=== PATIENT | male | born 2000 | race Caucasian/White ===

== ENCOUNTER 2020-10-18 16:18 | Emergency (ER) | payer BC ==
[~2020-10-18] VITALS: Ht 182.9 cm; Wt 90.7 kg
--- NOTE | 2020-10-18 16:33 | NUR ---
ED Nurse Note:pt. is on the phone
[2020-10-18] MEDS ORDERED: Lidocaine 1% MPF 10mg/ml 5ml INJ ONE (17:00)
[2020-10-18] MEDS ORDERED: Ketorolac 30mg Inj IM ONE (17:00)
[2020-10-18] MEDS ORDERED: CEPHALEXIN500 M1 ORAL (17:04)
[2020-10-18] MEDS ORDERED: IBU800 MG PO (17:04)
--- NOTE | 2020-10-18 17:04 | Emergency Room Report ---
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 Patient reports that he relapsed and used IV heroin few days ago and that side. That site does not appear to be warm to touch, patient has range of motion only feels pain upon palpation of the area rating it 3 out of 10. Appears to have a lot of scar tissue around the vein. No obvious abscess noted it could be deeper. Patient denies any fever and chills. Denies any chest pain shortness of breath. Has not taken medication yet. No obvious swelling noted. Patient is up-to-date with tetanus shot. 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 COVID-19 Screening: Negative COVID-19 COVID-19 Testing Source: nasal Patient History Past Medical History: see triage record Past Surgical History: none Pertinent Family History: none Immunizations: UTD Reviewed Nursing Documentation: PMH: Agreed; PSxH: Agreed Nursing Documentation-PMH Past Medical History: No History, Except For Review of Systems All Other Systems: negative except mentioned in HPI Physical Exam Vital Signs Date Time Temp Pulse Resp B/P (MAP) Pulse Ox O2 Delivery O2 Flow Rate FiO2 10/18/20 16:35 98.2 69 17 198/53 (101) 99 Room Air Sp02 EP Interpretation: reviewed, normal General Appearance: no apparent distress, alert, GCS 15, non-toxic Head: normocephalic, atraumatic Eyes: bilateral eye normal inspection, bilateral eye PERRL ENT: hearing grossly normal, no angioedema, normal voice Neck: supple Respiratory: no respiratory distress, no retraction, no accessory muscle use Cardiovascular #1: regular rate, rhythm, no edema Cardiovascular #2: 2+ radial (R), 2+ radial (L) Gastrointestinal: soft Rectal: deferred Musculoskeletal: back normal Neurologic: alert, motor strength/tone normal, oriented x3, sensory intact, responsive, speech normal Psychiatric: judgement/insight normal, memory normal, mood/affect normal, no suicidal/homicidal ideation Skin: other - Hard mobile mass on right anterior cubital fossa without any sensation of fluid, not warm to touch, no pus drainage noted Lymphatic: no adenopathy Medical Decision Making PA Attestation All my diagnosis and treatment plans were reviewed ad discussed with my supervising physician Dr. 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 Patient reports that he relapsed and used IV heroin few days ago and that side. That site does not appear to be warm to touch, patient has range of motion only feels pain upon palpation of the area rating it 3 out of 10. Appears to have a lot of scar tissue around the vein. No obvious abscess noted it could be deeper. Patient denies any fever and chills. Denies any chest pain shortness of breath. Has not taken medication yet. No obvious swelling noted. Patient is up-to-date with tetanus shot. Ddx considered but are not limited to : Cellulitis, superficial infection, abscess Vital signs: are WNL, pt. is afebrile H&PE are most consistent with: Possible cyst right arm, ORDERS: Keflex, ibuprofen ED INTERVENTIONS: Rocephin and Toradol DISCHARGE: At this time pt. is stable for d/c to home. Will provide printed patient care instructions, and any necessary prescriptions. Care plan and follow up instructions have been discussed with the patient prior to discharge. At this time I do not believe this is a superficial abscess as patient has range of motion denies any excessive pain and there is hardening of the right antecubital fossa possibility of calcification and scar tissue however advised patient to follow-up primary doctor, take antibiotic, if worsening symptoms return to the emergency room further imaging may be needed upon request of primary doctor follow-up on worsening of symptoms Last Vital Signs Date Time Temp Pulse Resp B/P (MAP) Pulse Ox O2 Delivery O2 Flow Rate FiO2 10/18/20 16:35 98.2 69 17 198/53 (101) 99 Room Air Disposition: HOME, SELF-CARE Condition: Stable Scripts Ibuprofen (Ibu) 800 Mg Tablet 800 MG PO TID, #30 TAB Prov: Jn Crews 10/18/20 Cephalexin* (KEFLEX*) 500 Mg Tablet 500 MG ORAL EVERY 6 HOURS for 7 Days, #28 CAP Prov: Jn Crews 10/18/20 Referrals: NOT CHOSEN [facility]/MD,REFERRING (PCP) Patient Instructions: Cellulitis, [id number] Additional Instructions: Take medication as directed, follow primary care provider, if worsening symptoms return to the emergency Jn Crews Oct 18, 2020 17:04
--- NOTE | 2020-10-18 17:30 | NUR ---
ED Nurse Note: Pt cleared by health care Provider for discharge. DC instructions/prescription was given and explained to pt and verbalized understanding of teachings. All medical deviecs such as ID band removed. Pt is AAO x4, ambulatory and left with all personal belongings.
[2020-10-18 17:48] VITALS: BP 134/53
== END 2020-10-18 17:51 | disposition home or self-care (01) ==
LOC: EMR 16:50
DX: L03.113 Cellulitis of right upper limb (principal); L72.9 Follicular cyst of the skin and subcutaneous tissue, unspecified
CPT/HCPCS: 96372; 99283; J0696; J1885